=== PATIENT | female | born 1960 ===

== ENCOUNTER 2017-01-18 12:47 | Inpatient (IN) | payer BC ==
[2017-01-18 12:56] VITALS: BMI 37.9
[2017-01-18 13:32] LABS: ADD MANUAL DIFF? NO
[2017-01-18 13:36] LABS: BASO # 0.03 K/mm3 (0.0-2.0); BASO % 0.4 % (0.0-3.0); EOS # 0.1 (0.0-0.7); EOS % 1.8 % (1.5-5.0); GRAN # 4.21 (1.4-6.5); GRAN % 58.2 % (50.0-68.0); HEMATOCRIT 41.6 % (36.0-48.0); LYMPH # 2.4 (1.2-3.4); LYMPH % 33.4 % (22.0-35.0); MEAN CELL VOLUME 78.2 fL (80.0-105.0); MEAN CORPUSCULAR HEMOGLOBIN 24.6 pg (25.0-35.0); MEAN CORPUSCULAR HGB CONC 31.5 g/dl (31.0-37.0); MEAN PLATELET VOLUME 10.8 fl (7.0-11.0); MONO # 0.5 (0.1-0.6); MONO % 6.2 % (1.0-6.0); PLATELET COUNT 223 10^3/uL (120.0-450.0); RED CELL DISTRIBUTION WIDTH 17.8 % (11.5-14.5); WHITE BLOOD COUNT 7.2 10^3/ul (4.5-11.0)
--- NOTE | 2017-01-18 13:38 | RAD ---
HISTORY: chest pain COMPARISON: 04/20/2016 FINDINGS: LUNGS: The lungs are clear. PLEURA: No significant pleural effusion identified, no pneumothorax apparent. CARDIOVASCULAR: Normal. OSSEOUS STRUCTURES: No significant abnormalities. VISUALIZED UPPER ABDOMEN: Normal. OTHER FINDINGS: None. IMPRESSION: No active pulmonary disease.
[2017-01-18 13:47] LABS: ALKALINE PHOSPHATASE 79 U/L (38-133); ALT/SGPT 71 U/L (7-56); AST/SGOT 55 U/L (15-39); BILIRUBIN,TOTAL 0.6 mg/dL (0.2-1.3); BLOOD UREA NITROGEN 10 mg/dL (7-21); CALCIUM 9.8 mg/dL (8.4-10.5); CARBON DIOXIDE 27 mmol/L (21-33); CHLORIDE 102 mmol/L (98-107); GFR AFRICAN-AMERICAN > 60; GLUCOSE,RANDOM 83 mg/dL (70-110); MAGNESIUM 1.9 mg/dL (1.7-2.2); POTASSIUM 4.2 mmol/L (3.6-5.0); SODIUM 143 mmol/L (132-148); TOTAL PROTEIN 8.6 g/dL (5.8-8.3)
[2017-01-18 14:00] LABS: TROPONIN I < 0.01 ng/mL
--- NOTE | 2017-01-18 14:29 | ED PDOC ---
Arrival/HPI - General Chief Complaint: Chest Pain Time Seen by Provider: 01/18/17 12:54 Historian: Patient - History of Present Illness Narrative History of Present Illness (Text): 01/18/17 12:54 A 56 year old female whose past medical history includes hypertension and diabetes, who is sent into the emergency department by agricultural technician for further evaluation. The patient complains of intermittent chest pain that started 2 days ago. Pain radiated to the neck and down left arm. Patient is currently taking nitroglycerin for pain with resolution. Patient notes intermittent diaphoresis but denies any shortness of breath, fever, cough , abdominal pain or any other complaints at this time. PMD: Dr. Smith Cardiolgist: Dr. Guajardo/Dr. Andrade 01/18/17 14:56 Time/Duration: < week (started 2 days ago) Symptom Onset: Sudden Symptom Course: Intermittent Quality: Other ("pain") Activities at Onset: Rest Modifying Factors (Text): pain better with medication Context: Home Associated Symptoms (Text): diaphoresis Past Medical History - Provider Review Nursing Documentation Reviewed: Yes - Infectious Disease Hx of Infectious Diseases: None - Tetanus Immunization Tetanus Immunization: Unknown - Cardiac Hx Cardiac Disorders: Yes Hx Hypertension: Yes - Pulmonary Hx Asthma: Yes - Neurological Hx Neurological Disorder: No - HEENT Hx HEENT Disorder: No - Renal Hx Renal Disorder: No - Endocrine/Metabolic Hx Diabetes Mellitus Type 2: Yes (Subq and PO meds) - Hematological/Oncological Hx Blood Disorders: No - Integumentary Hx Dermatological Disorder: No - Musculoskeletal/Rheumatological Hx Musculoskeletal Disorders: Yes (Peripheral neuropathy to bl feet and chronic pain to blle) Hx Falls: No - Gastrointestinal Hx Gastroesophageal Reflux: Yes Hx Gastrointestinal Ulcer: Yes Hx Liver Failure: Yes (Fatty liver and Lymphs around liver and pancreas) - Genitourinary/Gynecological Hx Genitourinary Disorders: No - Psychiatric Hx Psychophysiologic Disorder: No Hx Substance Use: No - Surgical History Hx Cardiac Catheterization: Yes (X4) Hx Hysterectomy: Yes (partial) - Anesthesia Hx Anesthesia: Yes - Suicidal Assessment Feels Threatened In Home Enviroment: No Family/Social History - Physician Review Nursing Documentation Reviewed: Yes Family/Social History: Unknown Family HX Smoking Status: Never Smoked Hx Alcohol Use: No Hx Substance Use: No Hx Substance Use Treatment: No Allergies/Home Meds Allergies/Adverse Reactions: Allergies ibuprofen [From Motrin] Allergy (Verified 01/18/17 12:51) RASH mushroom Allergy (Verified 01/18/17 12:51) RASH Home Medications: Home Meds Medication Instructions Recorded Confirmed Esomeprazole Magnesium [Nexium] 40 mg PO QAM 07/02/12 01/18/17 Insulin Detemir [Levemir] 49 unit SC BID 07/02/12 01/18/17 Losartan Potassium [Cozaar] 100 mg PO QAM 07/02/12 01/18/17 metFORMIN [glucOPHAGE] 1,000 mg PO BID 07/02/12 01/18/17 Glimepiride [Amaryl] 4 mg PO BID 07/06/13 01/18/17 Montelukast [Singulair] 10 mg PO DAILY 07/13/13 01/18/17 Aspirin [Aspirin EC] 81 mg PO DAILY 02/09/15 01/18/17 Canagliflozin [Invokana] 100 mg PO QAM 02/09/15 01/18/17 Carvedilol [Coreg] 3.125 mg PO BID 02/09/15 01/18/17 Gabapentin [Neurontin] 300 mg PO TID 02/09/15 01/18/17 Nitroglycerin [Nitrostat] 0.4 mg SL PRN PRN 02/09/15 01/18/17 Dulaglutide [Trulicity] 0.75 mg SC MON 11/08/15 01/18/17 Alprazolam 0.5 mg PO HS 11/09/15 04/20/16 Escitalopram [Lexapro] 10 mg PO DAILY 11/09/15 01/18/17 Quetiapine Fumarate [Seroquel] 50 mg PO HS 11/09/15 01/18/17 Ranolazine [Ranexa] 500 mg PO BID 11/09/15 01/18/17 Zolpidem Tartrate [Zolpidem] 10 mg PO HS 11/09/15 01/18/17 Review of Systems - Physician Review All systems were reviewed & negative as marked: Yes - Review of Systems Constitutional: absent: Fevers Respiratory: absent: SOB, Cough Cardiovascular: Chest Pain Gastrointestinal: absent: Abdominal Pain Endocrine: Diaphoresis Physical Exam Vital Signs Temp Pulse Resp BP Pulse Ox 01/18/17 16:13 72 16 143/79 99 01/18/17 12:55 98.4 F 80 18 145/78 96 Temperature: Afebrile Blood Pressure: Normal Pulse: Regular Respiratory Rate: Normal Appearance: Positive for: Well-Appearing, Non-Toxic, Comfortable Pain Distress: None Mental Status: Positive for: Alert and Oriented X 3 - Systems Exam Head: Present: Atraumatic, Normocephalic Pupils: Present: PERRL Extroacular Muscles: Present: EOMI Conjunctiva: Present: Normal Mouth: Present: Moist Mucous Membranes Neck: Present: Normal Range of Motion Respiratory/Chest: Present: Clear to Auscultation, Good Air Exchange. No: Respiratory Distress, Accessory Muscle Use Cardiovascular: Present: Regular Rate and Rhythm, Normal S1, S2. No: Murmurs Abdomen: Present: Normal Bowel Sounds. No: Tenderness, Distention, Peritoneal Signs Back: Present: Normal Inspection Upper Extremity: Present: Normal Inspection. No: Cyanosis, Edema Lower Extremity: Present: Normal Inspection. No: Edema Neurological: Present: GCS=15, CN II-XII Intact, Speech Normal Skin: Present: Warm, Dry, Normal Color. No: Rashes Psychiatric: Present: Alert, Oriented x 3, Normal Insight, Normal Concentration Medical Decision Making ED Course and Treatment: 01/18/17 12:54 Impression: 56 year old female with chest pain. Differential Diagnosis included but are not limited to: stable angina vs. unstable angina vs. musculoskeletal Plan: -- EKG -- Chest X-ray -- Labs -- Urinalysis -- IV fluids -- Reassess and disposition Prior Visits: Notes and results from previous visits were reviewed. The patient last presented to the emergency department on 04/20/16 for evaluation of chest pain. Progress Notes: EKG: Ordered, reviewed, and independently interpreted the EKG. Rate : 78 BPM Rhythm : NSR Interpretation : No ST-segment elevations or depressions, no T-wave inversions, normal intervals. 01/18/17 13:40 Chest X-ray: Creator : JANEY HENDRICKSON MD COMPARISON: 04/20/2016 FINDINGS: LUNGS: The lungs are clear. PLEURA: No significant pleural effusion identified, no pneumothorax apparent. CARDIOVASCULAR: Normal. OSSEOUS STRUCTURES: No significant abnormalities. VISUALIZED UPPER ABDOMEN: Normal. OTHER FINDINGS: None. IMPRESSION: No active pulmonary disease. Case discussed with Dr. Guajardo, who states he is monitoring the patient for a 70 % lesion and he recommends further monitoring and possible stress test. 01/18/17 14:[address] Zurita, who is aware and agrees with the plan to place the patient in Telemetry for observation for chest pain. I have discussed the results and plan with the patient, who expresses understanding. Patient given the opportunity to ask question, all questions were answered and there is agreement with the plan to be admitted to the hospital. Case discussed with Dr. Mike, who is aware and agrees with the plan. - Lab Interpretations Lab Results: 01/18/17 13:20 01/18/17 13:20 Lab Results 01/18/17 13:20: WBC 7.2, RBC 5.32, Hgb 13.1, Hct 41.6, MCV 78.2 L, MCH 24.6 L, MCHC 31.5, RDW 17.8 H, Plt Count 223, MPV 10.8, Gran % 58.2, Lymph % (Auto) 33.4 , [place] % (Auto) 6.2 H, Eos % (Auto) 1.8, Baso % (Auto) 0.4, Gran # 4.21, Lymph # 2.4, [place] # 0.5, Eos # 0.1, Baso # 0.03, Sodium 143, Potassium 4.2, Chloride 102, Carbon Dioxide 27, Anion Gap 18, BUN 10, Creatinine 0.7, Est GFR ( Amer) > 60, Est GFR (Non-Af Amer) > 60, Random Glucose 83, Calcium 9.8, Magnesium 1.9, Total Bilirubin 0.6, AST 55 H, ALT 71 H, Alkaline Phosphatase 79 , Lactate Dehydrogenase 463, Total Creatine Kinase 58, Troponin I < 0.01, NT-Pro -B Natriuret Pep 38.1, Total Protein 8.6 H, Albumin 4.4, Globulin 4.2, Albumin/ Globulin Ratio 1.0 L I have reviewed the lab results: Yes - RAD Interpretation Radiology Orders: 01/18/17 12:59 CHEST PORTABLE [RAD] Stat - EKG Interpretation Interpreted by ED Physician: Yes Type: 12 lead EKG - Medication Orders Current Medication Orders: Clopidogrel Bisulfate (Plavix) 75 mg PO DAILY GABY Discontinued Medications Aspirin (Aspirin) 325 mg PO STAT STA Stop: 01/18/17 13:06 Last Admin: 01/18/17 13:22 Dose: 325 MG Bupivacaine HCl (Marcaine 0.5%) Confirm Administered Dose 30 ml .ROUTE .STK-MED ONE Stop: 01/18/17 16:31 Clopidogrel Bisulfate (Plavix) 300 mg PO STAT STA Stop: 01/18/17 14:56 Last Admin: 01/18/17 15:22 Dose: 300 MG Cyclobenzaprine HCl (Flexeril) 10 mg PO STAT STA Stop: 01/18/17 13:20 Last Admin: 01/18/17 13:29 Dose: 10 MG Iohexol (Omnipaque 240 (50 Ml)) Confirm Administered Dose 50 ml .ROUTE .STK-MED ONE Stop: 01/18/17 16:31 - Scribe Statement The provider has reviewed the documentation as recorded by the Scribe Parisa Burleson, training with Adam Mckeon Provider Scribe Attestation: All medical record entries made by the Scribe were at my direction and personally dictated by me. I have reviewed the chart and agree that the record accurately reflects my personal performance of the history, physical exam, medical decision making, and the department course for this patient. I have also personally directed, reviewed, and agree with the discharge instructions and disposition. Disposition/Present on Arrival - Present on Arrival Any Indicators Present on Arrival: No History of DVT/PE: No History of Uncontrolled Diabetes: Yes Urinary Catheter: No History of Decub. Ulcer: No History Surgical Site Infection Following: None - Disposition Have Diagnosis and Disposition been Completed?: Yes Diagnosis: Chest pain Disposition: HOSPITALIZED Disposition Time: 14:29 Patient Plan: Observation, Telemetry Patient Problems: Current Active Problems Problem Status Diagnosed Chest pain Acute Facial numbness Acute Condition: FAIR
--- NOTE | 2017-01-18 15:26 | CON ---
DATE: 01/18/2017 HISTORY OF PRESENT ILLNESS: The patient is a 56-year-old woman who presented to the Emergency Room f emil Forrest' office with symptoms consistent with unstable angina. The patient suffers from multiple cardiac risk factors, including hypertension, questionable diabetes mellitus. The patient had a cardiac catheterization 2 years ago which she states had a 70% stenoses in 1 of the vessels. No stent was placed. A stress test was done 2 years ago which was abnormal. SOCIAL HISTORY: Denies smoking. REVIEW OF SYSTEMS: Reviewed. No history of bleeding. No peptic ulcer disease is noted. She does a dmit to ALLERGY TO MOTRIN. No issues with aspirin and she has taken it daily. PHYSICAL EXAMINATION: VITAL SIGNS: Stable. NECK: Negative JVD. LUNGS: Without rales. HEART: Reveals S1, S2. EXTREMITIES: Without edema. EKG is unremarkable. LABORATORIES: Reveal troponins that are negative x 1. IMPRESSION: 1. Unstable angina. 2. Documented coronary artery disease. 3. Hypertension. 4. Obesity. 5. Questionable diabetes mellitus. Given these findings, we will rule out a myocardial infarction with serial troponins. We will schedule the patient for cardiac catheterization with possible PTCA on Saturday. Alcon Mike MD cc: [id number] TT: 01/18/2017 15:26:07 Confirmation # [id number] Dictation # [id number] tn
[2017-01-18] MEDS ORDERED: Bupivacaine 0.5% Inj(30mL) ONE (16:30)
[2017-01-18] MEDS ORDERED: Iohexol 240 (50 ml) ONE (16:30)
--- NOTE | 2017-01-18 18:33 | CARD ---
APPROVED REPORT EKG Measurement Heart [id number] <Conclusion> Normal sinus rhythm Normal ECG
[2017-01-18] MEDS: Insulin Detemir 100 units/ml Vial (Levemir) SC SCH (20:46)
--- NOTE | 2017-01-18 23:35 | HP ---
HISTORY OF PRESENT ILLNESS: The patient is a 56-year-old who came to Emergency Room after she saw Dr Cortney Guajardo who referred her to Emergency Room because of chest pressure. She was seen by Dr. Bennett Smith's office. She was having intermittent chest pain that started 2-3 days ago but got worse so she came to see her emergency veterinarian. The patient states the pain is radiating towards the neck and a lso going towards the neck and towards the left arm and the fingers. She was given nitroglycerin wit h good effect, and her pain now almost resolved. She complained of feeling sweaty. Does complain of dizziness. No history of fever or chills. At times gets short of breath. PAST MEDICAL HISTORY: Significant for: 1. Morbid obesity. 2. Hypertension. 3. Hyperlipidemia. 4. Rij-axuylhn-gubtsielt diabetes. 5. She had cardiac catheterization done ____ and was found to have 70% stenosis. She also had a str ess test in 12/2015 and was found to have normal Myoview study, partial reversible anterior and apica l defect consistent with breast attenuation. ALLERGIES: SHE IS ALLERGIC TO IBUPROFEN AND MUSHROOM. MEDICATIONS AT HOME: She is on Nexium 40 mg daily. She is on aspirin 81 daily, Lexapro 10 mg daily, Trulicity 0.5 subcutaneous every Saturday, Coreg 3.125 twice a day, Invokana 100 mg daily, Levemir 49 units twice a day, Amaryl 4 mg twice a day, Neurontin 300 three times a day, Nexium 40 mg daily, Sero quel 50 mg at bedtime, Singulair 10 mg daily, Cozaar 100 mg daily, metformin 1000 twice a day, zolpid em 10 mg at bedtime, Ranexa 500 twice a day and Xanax. SOCIAL HISTORY: Denies smoking, drinking or alcohol use. ASSESSMENT: 1. Intermittent chest pain associated with diaphoresis and radiation to left arm. 2. Insulin-dependent diabetes. 3. Obesity. 4. Hypertension. 5. Hyperlipidemia. 6. Peptic ulcer disease. 7. History of depression. 8. Unstable angina. PLAN: The patient is going to be placed in observation. Will follow up troponin, follow up her card iac enzymes. Will start her on usual medication. Start her on losartan. She is on Ranexa 500 twice a day. She is on Coreg 3.125 twice a day. Will monitor her blood sugar. She has been started on P lavix. Monitor her blood sugar. Will evaluate this patient in the a.m. There is a plan for cardiac catheterization. I will hold off on metformin and cover her with high dose of Humalog. Myrna Zurita MD cc: [phone] TT: 01/18/2017 19:45:49 mn
[2017-01-19 06:49] LABS: ADD MANUAL DIFF? NO
[2017-01-19 07:07] LABS: BASO # 0.02 K/mm3 (0.0-2.0); BASO % 0.3 % (0.0-3.0); EOS # 0.2 (0.0-0.7); EOS % 2.2 % (1.5-5.0); GRAN # 4.09 (1.4-6.5); GRAN % 59.9 % (50.0-68.0); LYMPH # 2.1 (1.2-3.4); LYMPH % 31.2 % (22.0-35.0); MEAN CELL VOLUME 78.6 fL (80.0-105.0); MEAN CORPUSCULAR HGB CONC 30.5 g/dl (31.0-37.0); MEAN PLATELET VOLUME 10.7 fl (7.0-11.0); MONO # 0.4 (0.1-0.6); MONO % 6.4 % (1.0-6.0); PLATELET COUNT 214 10^3/uL (120.0-450.0); RED CELL DISTRIBUTION WIDTH 17.9 % (11.5-14.5); WHITE BLOOD COUNT 6.8 10^3/ul (4.5-11.0)
[2017-01-19 07:30] LABS: ALKALINE PHOSPHATASE 68 U/L (38-133); ALT/SGPT 51 U/L (7-56); AST/SGOT 48 U/L (15-39); BILIRUBIN,TOTAL 0.5 mg/dL (0.2-1.3); BLOOD UREA NITROGEN 14 mg/dL (7-21); CALCIUM 8.9 mg/dL (8.4-10.5); CARBON DIOXIDE 29 mmol/L (21-33); CHLORIDE 101 mmol/L (98-107); CHOLESTEROL 174 mg/dL (130-200); GFR AFRICAN-AMERICAN > 60; GLUCOSE,RANDOM 150 mg/dL (70-110); PHOSPHOROUS 4.1 mg/dL (2.5-4.5); POTASSIUM 3.9 mmol/L (3.6-5.0); SODIUM 141 mmol/L (132-148); TOTAL PROTEIN 7.5 g/dL (5.8-8.3)
[2017-01-19] MEDS: Insulin Lispro (humaLOG) MEDIUM Coverage SC SCH ×4 (07:30→22:58)
[2017-01-19 07:36] LABS: FREE T4 1.02 ng/dL (0.78-2.19)
[2017-01-19] MEDS: Pantoprazole 40 mg EC Tab PO SCH (07:46)
[2017-01-19 07:50] LABS: THYROID STIMULATING HORMONE 0.71 mIU/mL (0.46-4.68)
--- NOTE | 2017-01-19 08:14 | PN ---
DATE: 01/19/2017 SUBJECTIVE: The patient's symptoms are improved, but she still has intermittent chest discomfort hailee cribed as pressure. PHYSICAL EXAMINATION: VITAL SIGNS: Blood pressure 112/60, the heart rate is in the 70s. NECK: Negative JVD. LUNGS: Without rales. HEART: Reveals S1, S2. EXTREMITIES: Without edema. LABORATORIES: Include troponins that are negative x 2. The glucose is 150. Hemoglobin is 12.2. IMPRESSION: 1. Unstable angina. 2. Coronary artery disease. 3. Diabetes mellitus. 4. Hypertension. 5. Obesity. Given these findings, we will add Lovenox to her regimen. We will increase her carvedilol to 6.25 da lexie. The patient is scheduled for cardiac catheterization on Saturday. Alcon Mike MD cc: [id number] TT: 01/19/2017 08:14:06 Confirmation # [id number] Dictation # [id number] tn
[2017-01-19] MEDS: Insulin Detemir 100 units/ml Vial (Levemir) SC SCH ×2 (10:12→17:11)
[2017-01-19] MEDS: Non Formulary Medication (Ranolazine [Ranexa] 500 MG) PO SCH ×2 (10:16→17:16)
[2017-01-19] MEDS: Enoxaparin 80 mg Syringe SC SCH ×2 (10:19→20:30)
--- NOTE | 2017-01-19 12:08 | PN ---
DATE: 01/19/2017 SUBJECTIVE: The patient is a 56-year-old who came in with chest pain radiating from neck to shoulder to the left arm to the point her left arm was very heavy and numb and she was unable to lift it up. The patient has multiple risk factors, including morbid obesity, hypertension, non-insulin dependent diabetes, hyperlipidemia, so she is being observed and has been on Plavix, aspirin and plan is to borrero ve cardiac cath done on Saturday. PHYSICAL EXAMINATION: GENERAL: She is awake and alert, communicative. VITAL SIGNS: She is afebrile, pulse 72, respirations 18, blood pressure 112/59. LUNGS: Bilateral good airflow. No rhonchi or crackle. HEART: S1, S2 audible. No murmur. ABDOMEN: Soft, obese, nontender, no rebound, no guarding. NEUROLOGIC: The patient is awake and alert, communicative, ambulatory. LABORATORY EXAMINATION: WBC 6.8, hemoglobin 12, hematocrit 40, platelet of 214. Chemistry: Sodium 141, potassium 3.9, chloride 101, CO2 29, BUN 14, creatinine 0.8, blood sugar of 148. ASSESSMENT: 1. Chest pain, probably unstable angina. 2. Morbid obesity. 3. Hypertension. 4. Hyperlipidemia. 5. Peptic ulcer disease. 6. Cholelithiasis. PLAN: Currently, the patient is on Plavix. She is on beta christian. She is on Ranexa. She is getti ng Coreg, losartan 100 daily. She is on Lovenox 70 mg q. 12. We will continue that. She is also re ceiving Plavix and Protonix. Discussed with patient. She agreed with the plan and Dr. Mike will pro ceed for cardiac cath on Saturday. Myrna Zurita MD cc: [phone] TT: 01/19/2017 12:07:52 Confirmation # [id number] Dictation # [id number] tn
[2017-01-20] MEDS: Pantoprazole 40 mg EC Tab PO SCH (06:47)
[2017-01-20] MEDS: Insulin Detemir 100 units/ml Vial (Levemir) SC SCH ×2 (10:29→17:54)
[2017-01-20] MEDS: Insulin Lispro (humaLOG) MEDIUM Coverage SC SCH ×4 (10:32→23:12)
[2017-01-20] MEDS: Non Formulary Medication (Ranolazine [Ranexa] 500 MG) PO SCH ×2 (10:37→20:09)
[2017-01-20] MEDS: Enoxaparin 80 mg Syringe SC SCH (10:39)
--- NOTE | 2017-01-20 14:46 | PN ---
DATE: 01/20/2017 The patient is a 56-year-old, seen and examined, sitting in chair, comfortable. She states her chest soreness is much better than before. No nausea, vomiting, no diarrhea, no fever, no chills, no coug h, no congestion. PHYSICAL EXAMINATION: VITAL SIGNS: She is afebrile, pulse 77, respirations 20, blood pressure 145/88. LUNGS: Bilateral fair airflow, no rhonchi or crackle. HEART: S1, S2 audible. No murmur. ABDOMEN: Soft, obese, nontender, no rebound, no guarding. NEUROLOGIC: She is awake and alert, communicative, ambulatory. Today's blood sugar this morning was 258 and in the afternoon is 138. ASSESSMENT: 1. Chest pain, seems to be atypical. However, she has multiple risk factors and she has history of 70% occlusion of the coronary artery, so she is scheduled to have cardiac cath done in the morning. She is currently on Lovenox, beta christian. Her blood sugar is being monitored. 2. Insulin-dependent diabetes. 3. Hypertension. 4. Hyperlipidemia. 5. Morbid obesity. PLAN: The patient's medications reviewed and found to be appropriate. The patient is scheduled for cardiac cath in a.m. Myrna Zurita MD cc: [phone] TT: 01/20/2017 14:45:51 Confirmation # [id number] Dictation # [id number] en
[2017-01-21] MEDS: Pantoprazole 40 mg EC Tab PO SCH (05:38)
[2017-01-21] MEDS ORDERED: Iohexol 350mgl/ml 50 ML ONE (06:46)
[2017-01-21] MEDS ORDERED: Lidocaine 2% Inj (20ml) ONE (06:46)
[2017-01-21] MEDS: Midazolam 2 MG/2 ML VIAL ONE ×4 (08:07→12:23)
[2017-01-21] MEDS ORDERED: Iohexol 350 MG/100 ML VIAL ONE (08:21)
--- NOTE | 2017-01-21 08:43 | PN ---
DATE: 01/20/2017 CARDIOLOGY FOLLOWUP The patient is feeling well, resting okay in bed. No chest pain this morning. PHYSICAL EXAMINATION: VITAL SIGNS: Blood pressure is 118/62. The heart rate is in the 70s. NECK: Negative JVD. LUNGS: Without rales. HEART: Reveals S1, S2. EXTREMITIES: Without edema. LABORATORIES: Not done today. IMPRESSION: 1. Recurrent angina. 2. High probability for coronary artery disease. 3. Diabetes mellitus. 4. Hypertension. PLAN: Given these findings, we will discontinue the Lovenox today. The patient is scheduled for car diac catheterization in the morning. Alcon Mike MD cc: [id number] TT: 01/20/2017 08:50:59 Confirmation # [id number] Dictation # [id number] jn
[2017-01-21] MEDS ORDERED: Sodium Chloride 0.9% 1,000 ML IV SCH (09:00)
--- NOTE | 2017-01-21 10:14 | CARDCATH ---
PROCEDURE DATE: 01/21/2017 HISTORY: The patient is a 56-year-old woman who presents with recurrence of angina including progres sive shortness of breath and angina at rest. Her cardiac risk factors are multiple including diabetes mellitus. A myocardial infarction was ruled out. Because of this, cardiac catheterization was recommended. PROCEDURE: Left heart catheterization with coronary angiography and left ventriculogram. The right femoral artery was cannulated with a 6-Azeri sheath. There were no complications. Findings on catheterization revealed a left ventricle that contracted normally. Estimated ejection f raction is 55-60%. Her coronary anatomy revealed a right dominant circulation. The RCA revealed no critical lesions. The left main artery was unremarkable. The LAD was a small vessel and revealed an eccentric 50% stenosis in the mid portion. The rest of he r diagonal vessels are unremarkable. The circumflex artery and obtuse marginal branches were within normal limits. Angio-Seal was used to close the femoral artery site. The patient tolerated the procedure well. SUMMARY: The procedure revealed an eccentric nonobstructive 50% stenosis in the mid left anterior de scending (LAD). LV function is normal. Given these findings, the patient's treatment will be continued medical therapy including a cardiac r isk reduction program. I have discussed this with the patient in detail. The patient can be dischar ge today. Alcon Mike MD cc: [id number] TT: 01/21/2017 10:13:54 georgette
[2017-01-21] MEDS: Insulin Lispro (humaLOG) MEDIUM Coverage SC SCH ×3 (12:18→22:32)
[2017-01-21] MEDS: Insulin Detemir 100 units/ml Vial (Levemir) SC SCH ×2 (12:19→18:09)
[2017-01-21] MEDS: Non Formulary Medication (Ranolazine [Ranexa] 500 MG) PO SCH ×2 (12:20→18:16)
--- NOTE | 2017-01-21 14:22 | PN ---
DATE: 01/21/2017 The patient is a 56-year-old, seen and examined, lying in bed, seems to be comfortable, not in any di stress. No chest pain, no shortness of breath. PHYSICAL EXAMINATION: VITAL SIGNS: She is afebrile, pulse 76, respirations 20, blood pressure 122/76. LUNGS: Bilateral fair airflow, no rhonchi or crackle. HEART: S1, S2 audible. ABDOMEN: Soft, obese, nontender, no rebound, no guarding. NEUROLOGIC: The patient is awake and alert, communicative, just had cardiac cath done. LABORATORY EXAMINATION: There is no new lab available today. Blood sugar is 181. ASSESSMENT: 1. Chest pain, noncardiac. 2. Hypertension. 3. Hyperlipidemia. 4. Insulin-dependent diabetes. 5. Peptic ulcer disease. PLAN: Currently, patient is on Ranexa. She is getting Coreg, losartan, aspirin. She is on Levemir. We will continue all that. Today's cardiac cath shows nonocclusive coronaries. ASSESSMENT: 1. Chest pain, noncardiac. 2. Hypertension. 3. Insulin-dependent diabetes. PLAN: The patient will be monitored and watched today and if she remains stable, she will be dischar ged home in a.m. Myrna Zurita MD cc: [phone] TT: 01/21/2017 12:32:44 Confirmation # [id number] Dictation # [id number] en 01/21/2017 13:20:57
[2017-01-21 19:42] VITALS: RESP 20
[2017-01-21 20:08] LABS: HEMATOCRIT 39.2 % (36.0-48.0); MEAN CELL VOLUME 77.8 fL (80.0-105.0); MEAN CORPUSCULAR HEMOGLOBIN 24.8 pg (25.0-35.0); MEAN CORPUSCULAR HGB CONC 31.9 g/dl (31.0-37.0); MEAN PLATELET VOLUME 10.4 fl (7.0-11.0); RED CELL DISTRIBUTION WIDTH 17.6 % (11.5-14.5); WHITE BLOOD COUNT 7.5 10^3/ul (4.5-11.0)
[2017-01-21] MEDS ORDERED: Oxycodone/Acetaminophen 5/325 mg Tab PO STA (21:29)
[2017-01-22] MEDS: Pantoprazole 40 mg EC Tab PO SCH (06:07)
[2017-01-22 06:37] VITALS: O2SAT 98
--- NOTE | 2017-01-22 06:45 | CP.PCM.PN ---
Subjective - Date & Time of Evaluation Date of Evaluation: 01/21/17 Time of Evaluation: 19:35 - Subjective Subjective: Patient's groin area was examined upon request of the nurse as noticed some discoloration, pain and swelling, patient had cardiac cath from the right groin in the morning. Upon evaluation and comparing with other groin, patient had significant folds in the both groin due to obesity, right groin showed echycmosis, no active bleeding, upon palpation not induration, mild tenderness around the cath site. Patient's hemoglobin was check and rechecked this am, patient evaluated by the nurse as well overnight with no change in the exam. Primary team will be notified by nursing. Objective - Vital Signs/Intake and Output Vital Signs (last 24 hours): Temp Pulse Resp BP Pulse Ox 97.3 F L 81 20 118/70 98 01/22/17 06:00 01/22/17 06:00 01/22/17 06:00 01/22/17 06:00 01/22/17 06:00 Intake and Output: 01/21/17 01/22/17 18:59 06:59 Intake Total 360 Output Total 450 Balance -90 - Medications Medications: Current Medications Alprazolam (Xanax) 0.5 mg PO DAILY [facility] Last Admin: 01/20/17 12:53 Dose: 0.5 mg Aspirin (Ecotrin) 81 mg PO DAILY [facility] Last Admin: 01/21/17 15:03 Dose: Not Given Carvedilol (Coreg) 6.25 mg PO BID [facility] Last Admin: 01/21/17 18:06 Dose: 6.25 mg Escitalopram Oxalate (Lexapro) 10 mg PO DAILY [facility] Last Admin: 01/21/17 11:13 Dose: 10 mg Gabapentin (Neurontin) 300 mg PO TID [facility] PRN Reason: Protocol Last Admin: 01/21/17 18:05 Dose: 300 mg Glimepiride (Amaryl) 4 mg PO BID [facility] Last Admin: 01/21/17 18:05 Dose: 4 mg Insulin Detemir (Levemir) 49 unit SC BID [facility] Last Admin: 01/21/17 18:09 Dose: 49 unit Insulin Human Lispro (Humalog Med) 0 units SC ACHS [facility] PRN Reason: Protocol Last Admin: 01/21/17 22:32 Dose: Not Given Losartan Potassium (Cozaar) 100 mg PO QAM [facility] Last Admin: 01/21/17 11:14 Dose: 100 mg Montelukast Sodium (Singulair) 10 mg PO DAILY [facility] Last Admin: 01/21/17 15:09 Dose: 10 mg Non-Formulary Medication (Ranolazine [Ranexa]) 500 mg PO BID [facility] Last Admin: 01/21/17 18:16 Dose: Not Given Pantoprazole Sodium (Protonix Ec Tab) 40 mg PO 0630 [facility] Last Admin: 01/22/17 06:07 Dose: 40 mg Zolpidem Tartrate (Ambien) 5 mg PO HS [facility] Last Admin: 01/21/17 23:33 Dose: 5 mg - Labs Labs: 01/21/17 20:03
[2017-01-22 07:15] LABS: HEMATOCRIT 40.4 % (36.0-48.0); MEAN CELL VOLUME 78.3 fL (80.0-105.0); MEAN CORPUSCULAR HEMOGLOBIN 24.2 pg (25.0-35.0); MEAN CORPUSCULAR HGB CONC 30.9 g/dl (31.0-37.0); MEAN PLATELET VOLUME 10.2 fl (7.0-11.0); RED CELL DISTRIBUTION WIDTH 17.7 % (11.5-14.5); WHITE BLOOD COUNT 6.6 10^3/ul (4.5-11.0)
[2017-01-22] MEDS: Insulin Lispro (humaLOG) MEDIUM Coverage SC SCH (08:35)
[2017-01-22] MEDS: Insulin Detemir 100 units/ml Vial (Levemir) SC SCH (09:55)
[2017-01-22] MEDS: Non Formulary Medication (Ranolazine [Ranexa] 500 MG) PO SCH ×2 (09:59→10:03)
--- NOTE | 2017-01-22 11:43 | PN ---
DATE: 01/22/2017 The patient is comfortable. Her transient discomfort in the right groin, as well as oozing from the groin was treated appropriately with pressure. Currently, the right groin site is stable. Blood pressure is 124/69, the heart rate is in the 70s. NECK: Negative JVD. LUNGS: Without rales. HEART: Reveals S1, S2. EXTREMITIES: Without edema. LABORATORIES: Unremarkable. IMPRESSION: 1. Status post catheterization for recurrent chest pain, which revealed nonobstructive coronary arter y disease. 2. Diabetes mellitus. 3. Transient bleeding from the right groin site after the procedure, which is now stable. Given these findings, the patient can be discharged today. Followup and instructions have been given to the patient in detail. Alcon Mike MD cc: [id number] TT: 01/22/2017 11:42:45 Confirmation # [id number] Dictation # [id number] georgette
[2017-01-22 12:32] VITALS: BP 123/73; PULSE 65; TEMP 98.2
--- NOTE | 2017-01-23 08:17 | DS ---
The patient is a 56-year-old, seen and examined lying in bed. Comfortable. No chest pain, no shortn ess of breath. Eating and tolerating. Ambulating. Very anxious to go home. PHYSICAL EXAMINATION: VITAL SIGNS: She is afebrile, pulse 65, respirations 20, blood pressure 123/73. LUNGS: Bilateral fair airflow, no rhonchi or crackle. HEART: S1, S2 audible. No murmur. ABDOMEN: Soft, obese, nontender. No rebound, no guarding. NEUROLOGIC: The patient is awake and alert, communicative. LABORATORY EXAM: WBC 6.6, hemoglobin 12.5, hematocrit 40, platelet 189. Chemistry: Blood sugar is 201. ASSESSMENT: 1. Chest pain. No evidence of acute myocardial infarction. Her coronaries are clear. 2. Status post cardiac catheterization, unremarkable. No ischemia and no blockage requiring angiopl asty. 3. Insulin-dependent diabetes. 4. Morbid obesity. 5. Hypertension. 6. Hyperlipidemia. PLAN: The patient is being discharged home. She is going to resume her medications including aspiri n 81 daily, Lexapro 10 mg daily, Trulicity, Coreg, Levemir, Amaryl, Neurontin 300 three times a day, Nexium 40 daily, Seroquel 50 mg at bedtime, Singulair 10 mg daily, losartan 100 mg in the morning, me tformin 1000 twice a day, zolpidem 10 mg at bedtime. She will follow with Dr. Smith as outpatient and she will take her cardiac cath report to her spinning operator, Dr. Guajardo. Myrna Zurita MD cc: [id number] TT: 01/23/2017 08:16:54 md
== END 2017-01-22 14:03 | disposition home or self-care (01) | DRG 287 ==
LOC: ED 12:47 → ERH 14:29 → 2RSO 16:24 → OBSVTOIN 01-19 14:22 → 2RNO 01-19 21:53 → 2RSO 01-21 10:25
PROVIDERS: ADMIT Internal Medicine; ATTEND Internal Medicine
PROC: 4A023N7 Measurement of Cardiac Sampling and Pressure, Left Heart, Percutaneous Approach (ICD-10-PCS; principal; 2017-01-21)
PROC: B2151ZZ Fluoroscopy of Left Heart using Low Osmolar Contrast (ICD-10-PCS; 2017-01-21)
PROC: B2111ZZ Fluoroscopy of Multiple Coronary Arteries using Low Osmolar Contrast (ICD-10-PCS; 2017-01-21)
DX: I25.10 Atherosclerotic heart disease of native coronary artery without angina pectoris (principal); E66.01 Morbid (severe) obesity due to excess calories; K27.9 Peptic ulcer, site unspecified, unspecified as acute or chronic, without hemorrhage or perforation; R07.89 Other chest pain; E11.9 Type 2 diabetes mellitus without complications; I10 Essential (primary) hypertension; E78.5 Hyperlipidemia, unspecified; F32.9 Major depressive disorder, single episode, unspecified; K80.20 Calculus of gallbladder without cholecystitis without obstruction; Z79.4 Long term (current) use of insulin; Z79.84 Long term (current) use of oral hypoglycemic drugs; Z88.6 Allergy status to analgesic agent; Z79.82 Long term (current) use of aspirin

== ENCOUNTER 2017-11-18 14:02 | Observation (INO) | payer BC ==
[2017-11-18 14:11] VITALS: BMI 37.3
--- NOTE | 2017-11-18 14:55 | ED PDOC ---
Arrival/HPI - General Chief Complaint: Chest Pain Time Seen by Provider: 11/18/17 14:22 Historian: Patient - History of Present Illness Narrative History of Present Illness (Text): 11/18/17 14:25 Iwona Frederick is a 56 year old female who presents to the emergency department complaining of chest pain, shortness of breath, dizziness, near syncope. and generalized weakness prior to arrival. Patient states that she took her aspirin prior to arrival. Patient had a 50% LAD lesion on last December and was catheterized on 01/21 with medical therapy only. Patient has no other complaints at this time. Patient is not a smoker and does not drink. Time/Duration: Prior to Arrival Symptom Onset: Gradual Severity Level: Mild Context: Home Associated Symptoms (Text): 11/18/17 15:13 This afternoon while cooking the patient developed chest pain shortness of breath dizziness and lightheadedness and near syncope and generalized weakness. Cardiac catheterization in December 2016 showed right dominant circulation with a 50% LAD lesion. Past Medical History - Provider Review Nursing Documentation Reviewed: Yes - Infectious Disease Hx of Infectious Diseases: None - Tetanus Immunization Tetanus Immunization: Unknown - Reproductive Menopause: Yes - Cardiac Hx Cardiac Disorders: Yes Hx Cardiac Arrhythmia: No Hx Circulatory Problems: No Hx Congestive Heart Failure: No Hx GA: Yes Hx Heart Murmur: No Hx Heart Transplant: No Hx Internal Defibrillator: No Hx Mitral Valve Prolapse: No Hx Pacemaker: No Hx Peripheral Edema: No Hx Peripheral Vascular Disease: No Other/Comment: GA - Pulmonary Hx Respiratory Disorders: No Hx Asthma: Yes Hx Bronchitis: No Hx Chronic Obstructive Pulmonary Disease (COPD): No Hx Emphysema: No Hx Pneumonia: No Hx Respiratory Aspiration: No Hx Respiratory Tract Infection: No Hx Sleep Apnea: No Hx Tuberculosis: No - Neurological Hx Neurological Disorder: No Hx Alzheimer's Disease: No HX Cerebrovascular Accident: Yes (TIA's) Hx Dementia: No Hx Dizziness: No Hx Meningitis: No Hx Paralysis: No Hx Parkinson's Disease: No Hx Seizures: No - HEENT Hx Blind: No Hx Cataracts: No Hx Deafness: No Hx Difficulty Chewing: No Hx Epistaxis: No Hx Glaucoma: No Hx Macular Degeneration: No - Renal Hx Kidney Stones: No Hx Neurogenic Bladder: No Hx Pyelonephritis: No Hx Renal Failure: No - Endocrine/Metabolic Hx Endocrine Disorders: No Hx Adrenal Cancer: No Hx Diabetes Insipidus: No Hx Diabetes Mellitus Type 1: No Hx Diabetes Mellitus Type 2: Yes (Subq and PO meds) Hx Hyperthyroidism: No Hx Hypothyroidism: Yes Hx Systemic Lupus Erythematosus: No - Hematological/Oncological Hx AIDS: No Hx Blood Transfusions: No Hx Blood Transfusion Reaction: No Hx Cancer: Yes (Cervical) Hx Cirrhosis: No Hx Hemophilia: No Hx Hepatitis A: No Hx Hepatitis B: No Hx Hepatitis C: No Hx Metastasis: No Hx Shingles: No Hx Sickle Cell Disease: No Hx Unexplained Bleeding: No - Integumentary Hx Basal Cell Carcinoma: No Hx Eczema: No Hx Melanoma: No Hx Psoriasis: No Hx Squamous Cell Carcinoma: No - Musculoskeletal/Rheumatological Hx Musculoskeletal Disorders: Yes (Peripheral neuropathy to bl feet and chronic pain to blle) Hx Degenerative Joint Disease: No Hx Falls: No Hx Fractures: No Hx Gout: No Hx Herniated Disk: No Hx Myasthenia Gravis: No Hx Osteoarthritis: No Hx Osteomyelitis: No Hx Osteoporosis: No Hx Rhabdomyolysis: No Hx Spinal Stenosis: No Hx Unsteady Gait: No - Gastrointestinal Hx Gastrointestinal Disorders: No Hx Colostomy: No Hx Crohn's Disease: No Hx Diverticulitis: No Hx Gall Bladder Disease: No Hx Gastroesophageal Reflux: Yes Hx Ileostomy: No Hx Liver Failure: Yes (Fatty liver and Lymphs around liver and pancreas) Hx Pancreatitis: No HX Swallowing Problems: No - Genitourinary/Gynecological Hx Genitourinary Disorders: No Hx Cervical Cancer: Yes (FROZEN COLONIZATION?) Hx Hematuria: No Hx Incontinence: No Hx Prostate Problems: No Hx Sexually Transmitted Diseases: No Hx Urinary Tract Infection: No - Psychiatric Hx Anxiety: No Hx Bipolar Disorder: No Hx Depression: No Hx Emotional Abuse: No Hx Hallucinations: No Hx Panic Disorder: No Hx Post Traumatic Stress Disorder: No Hx Psychosis: No Hx Physical Abuse: No Hx Schizophrenia: No Hx Sexual Abuse: No Hx Substance Use: No - Surgical History Hx Amputation: No Hx Appendectomy: No Hx Cardiac Catheterization: Yes Hx Section: Yes Hx Cholecystectomy: No Hx Coronary Stent: No Hx Gastric Bypass Surgery: No Hx Hysterectomy: Yes (partial) Hx Joint Replacement: No Hx Kidney Transplant: No Hx Liver Transplant: No Hx Mastectomy: No Hx Musculoskeletal Surgery: No Hx Open Heart Surgery: No Hx Orthopedic Surgery: No Hx Splenectomy: No Hx Valve Replacement: No - Anesthesia Hx Anesthesia: Yes Hx Anesthesia Reactions: No Hx Malignant Hyperthermia: No - Suicidal Assessment Feels Threatened In Home Enviroment: No Family/Social History - Physician Review Nursing Documentation Reviewed: Yes Family/Social History: No Known Family HX Smoking Status: Never Smoked Hx Alcohol Use: No Hx Substance Use: No Hx Substance Use Treatment: No Allergies/Home Meds Allergies/Adverse Reactions: Allergies ibuprofen [From Motrin] Allergy (Verified 11/18/17 14:37) RASH mushroom Allergy (Verified 11/18/17 14:37) RASH Home Medications: Home Meds Medication Instructions Recorded Confirmed Montelukast [Singulair] 10 mg PO DAILY 07/13/13 11/18/17 Aspirin [Aspirin EC] 81 mg PO DAILY 02/09/15 11/18/17 Carvedilol [Coreg] 6.25 mg PO BID 02/09/15 11/18/17 Gabapentin [Neurontin] 600 mg PO TID 02/09/15 11/18/17 Nitroglycerin [Nitrostat] 0.4 mg SL PRN PRN 02/09/15 11/18/17 Albuterol HFA [Ventolin HFA 90 2 puff IH Q6 PRN 02/19/17 11/18/17 mcg/actuation (8 g)] Alprazolam 0.5 mg PO HS PRN 02/19/17 11/18/17 Diltiazem HCl [Cardizem Cd] 120 mg PO DAILY 02/19/17 11/18/17 Dulaglutide [Trulicity] 1.5 mg SC QWK 02/19/17 11/18/17 Escitalopram [Lexapro] 10 mg PO DAILY 02/19/17 11/18/17 Esomeprazole Magnesium [Nexium] 40 mg PO DAILY 02/19/17 11/18/17 Insulin Degludec [Tresiba 60 unit SC DAILY 02/19/17 11/18/17 Flextouch U-100] Levomefolate/B6/B12/Algal Oil 1 tab PO DAILY 02/19/17 11/18/17 [Metanx Capsule] Losartan [Cozaar] 100 mg PO DAILY 02/19/17 11/18/17 Pregabalin [Lyrica] 100 mg PO TID 02/19/17 11/18/17 QUEtiapine [SEROquel XR] 50 mg PO HS 02/19/17 11/18/17 Ranolazine [Ranexa] 500 mg PO BID 02/19/17 11/18/17 Zolpidem [Ambien] 10 mg PO HS 02/19/17 11/18/17 Canagliflozin/Metformin HCl 1 tab PO BID 11/18/17 11/18/17 [Invokamet 50 mg-1000 mg] Clopidogrel [Plavix] 75 mg PO DAILY 11/18/17 11/18/17 Ezetimibe [Zetia] 10 mg PO DAILY 11/18/17 11/18/17 Glimepiride [Amaryl] 4 mg PO BID 11/18/17 11/18/17 Review of Systems - Physician Review All systems were reviewed & negative as marked: Yes - Review of Systems Constitutional: absent: Fevers, Night Sweats Eyes: absent: Vision Changes ENT: absent: Hearing Changes Respiratory: SOB. absent: Cough, Sputum, Wheezing Cardiovascular: Chest Pain, Syncope (near syncope). absent: Palpitations Gastrointestinal: absent: Abdominal Pain, Nausea, Vomiting Genitourinary Female: absent: Dysuria, Frequency Musculoskeletal: absent: Arthralgias Skin: absent: Rash, Pruritis Neurological: Dizziness. absent: Headache Endocrine: absent: Diaphoresis Hemo/Lymphatic: absent: Adenopathy Psychiatric: absent: Anxiety, Depression Physical Exam Vital Signs Reviewed: Yes Vital Signs Temp Pulse Pulse Resp BP Pulse Ox 11/18/17 16:05 75 18 137/66 96 11/18/17 14:15 76 11/18/17 14:11 98.1 F 76 18 121/61 96 Temperature: Afebrile Blood Pressure: Normal Pulse: Regular Respiratory Rate: Normal Appearance: Positive for: Other (Obese and anxious) Pain Distress: None Mental Status: Positive for: Alert and Oriented X 3 - Systems Exam Head: Present: Atraumatic, Normocephalic Pupils: Present: PERRL Extroacular Muscles: Present: EOMI Conjunctiva: Present: Normal Mouth: Present: Moist Mucous Membranes Pharnyx: No: ERYTHEMA, EXUDATE, TONSILS ENLARGED Neck: Present: Normal Range of Motion Respiratory/Chest: Present: Clear to Auscultation, Good Air Exchange, Other ( patient has a loop recorder in place for 2 years). No: Respiratory Distress, Accessory Muscle Use Cardiovascular: Present: Regular Rate and Rhythm, Normal S1, S2. No: Murmurs Abdomen: Present: Normal Bowel Sounds. No: Tenderness, Distention, Peritoneal Signs, Rebound, Guarding Back: Present: Normal Inspection Upper Extremity: Present: Normal Inspection. No: Cyanosis, Edema Lower Extremity: Present: Normal Inspection. No: Edema Neurological: Present: GCS=15, CN II-XII Intact, Speech Normal, Motor Func Grossly Intact Skin: Present: Warm, Dry, Normal Color. No: Rashes Psychiatric: Present: Alert, Oriented x 3, Normal Insight, Normal Concentration Medical Decision Making ED Course and Treatment: 11/18/17 14:58 Impression: 56 year old female who presents to the emergency department complaining of chest pain, shortness of breath, dizziness, near syncope. Plan: -- EKG -- Chest X-ray -- Labs -- Reassess and disposition Prior Visits: Notes and results from previous visits were reviewed. Patient was last seen in emergency department on 01/18/17 sent by wooden tank erector for further evaluation. Patient was admitted to hospitalist care for further evaluation. Progress Notes: 11/18/17 15:15 EKG shows normal sinus rhythm rate approximately [address] or T-wave changes 11/18/17 17:36 Chest X-ray: Creator : Glenroy Yoon MD FINDINGS: LUNGS:No active pulmonary disease. PLEURA:No significant pleural effusion identified, no pneumothorax apparent. CARDIOVASCULAR:Moderate vascular congestion. OSSEOUS STRUCTURES:No significant abnormalities. VISUALIZED UPPER ABDOMEN:Normal. OTHER FINDINGS:None. IMPRESSION: Moderate vascular congestion - Lab Interpretations Lab Results: 11/18/17 15:10 11/18/17 15:10 Lab Results 11/18/17 15:10: Sodium 140, Potassium 4.2, Chloride 104, Carbon Dioxide 24, Anion Gap 16, BUN 11, Creatinine 0.7, Est GFR ( Amer) > 60, Est GFR (Non- Af Amer) > 60, Random Glucose 136 H, Calcium 9.8, Total Bilirubin 0.3, AST 31, ALT 53, Alkaline Phosphatase 71, Lactate Dehydrogenase 423, Total Creatine Kinase 78, Troponin I < 0.01, NT-Pro-B Natriuret Pep 45.0, Total Protein 7.9, Albumin 4.1, Globulin 3.8, Albumin/Globulin Ratio 1.1 11/18/17 15:10: WBC 8.0 D, RBC 5.13, Hgb 12.0, Hct 39.8, MCV 77.6 L, MCH 23.4 L , MCHC 30.2 L, RDW 18.2 H, Plt Count 219, MPV 10.8, Gran % 65.5, Lymph % (Auto) 28.2, Jennings % (Auto) 4.1, Eos % (Auto) 2.0, Baso % (Auto) 0.2, Gran # 5.25, Lymph # 2.3, Jennings # 0.3, Eos # 0.2, Baso # 0.02 I have reviewed the lab results: Yes - RAD Interpretation Radiology Orders: 11/18/17 14:49 CHEST PORTABLE [RAD] Stat - Scribe Statement The provider has reviewed the documentation as recorded by the Jason Cotton Provider Scribe Attestation: All medical record entries made by the Scribe were at my direction and personally dictated by me. I have reviewed the chart and agree that the record accurately reflects my personal performance of the history, physical exam, medical decision making, and the department course for this patient. I have also personally directed, reviewed, and agree with the discharge instructions and disposition. Disposition/Present on Arrival - Present on Arrival Any Indicators Present on Arrival: No History of DVT/PE: No History of Uncontrolled Diabetes: Yes Urinary Catheter: No History of Decub. Ulcer: No History Surgical Site Infection Following: None - Disposition Have Diagnosis and Disposition been Completed?: Yes Diagnosis: Near syncope, Chest pain Disposition: HOSPITALIZED Disposition Time: 15:55 Patient Plan: Observation, Telemetry Patient Problems: Current Active Problems Problem Status Onset Chest pain Acute Near syncope Acute Condition: GOOD
[2017-11-18 15:20] LABS: BASO # 0.02 K/mm3 (0.0-2.0); BASO % 0.2 % (0.0-3.0); EOS # 0.2 (0.0-0.7); GRAN # 5.25 (1.4-6.5); GRAN % 65.5 % (50.0-68.0); LYMPH # 2.3 (1.2-3.4); LYMPH % 28.2 % (22.0-35.0); MEAN CELL VOLUME 77.6 fl (80.0-105.0); MEAN CORPUSCULAR HEMOGLOBIN 23.4 pg (25.0-35.0); MEAN CORPUSCULAR HGB CONC 30.2 g/dl (31.0-37.0); MEAN PLATELET VOLUME 10.8 fl (7.0-11.0); MONO # 0.3 (0.1-0.6); MONO % 4.1 % (1.0-6.0); RBC 5.13 10^6/uL (3.5-6.1); RED CELL DISTRIBUTION WIDTH 18.2 % (11.5-14.5)
--- NOTE | 2017-11-18 15:29 | RAD ---
HISTORY: cp COMPARISON: 01/18/2017 FINDINGS: LUNGS: No active pulmonary disease. PLEURA: No significant pleural effusion identified, no pneumothorax apparent. CARDIOVASCULAR: Normal. OSSEOUS STRUCTURES: No significant abnormalities. VISUALIZED UPPER ABDOMEN: Normal. OTHER FINDINGS: None. IMPRESSION: No active disease.
[2017-11-18 15:34] LABS: ALB/GLOB RATIO 1.1 (1.1-1.8); ALBUMIN 4.1 g/dL (3.0-4.8); ALT/SGPT 53 U/L (7-56); AST/SGOT 31 U/L (14-36); BLOOD UREA NITROGEN 11 mg/dL (7-21); CALCIUM 9.8 mg/dL (8.4-10.5); GFR AFRICAN-AMERICAN > 60; GFR NON-AFRICAN AMERICAN > 60
[2017-11-18 15:45] LABS: TROPONIN I < 0.01 ng/mL
--- NOTE | 2017-11-18 19:30 | CARD ---
APPROVED REPORT EKG Measurement Heart [id number] VT [id number] [id number] <Conclusion> Normal sinus rhythm Minimal voltage criteria for LVH, may be normal variant Borderline ECG
[2017-11-18] MEDS ORDERED: QUEtiapine 50 mg XR Tab PO SCH (22:00)
--- NOTE | 2017-11-19 02:54 | HP ---
HISTORY OF PRESENT ILLNESS: The patient is 56-year-old known to me from previous admission, came to emergency room because of chest pain. She was complaining of feeling dizzy as if she is going to pass out. She did have some shortness of breath. She had generalized weakness and somebody told that she might be having TIA, so she got worried and came to emergency room for further evaluation. The patient does state that she usually takes aspirin and she did so today also. No history of nausea or vomiting. No history of diarrhea. No complaint of headache. PAST MEDICAL HISTORY: Significant for; 1. Morbid obesity. 2. Hypertension. 3. Hyperlipidemia. 4. Coronary artery disease. The patient had cardiac cath done by Dr. Alcon Mike in 12/2016 and was found to have nonobstructive coronaries and medical therapy was recommended. 5. Insulin dependent diabetes. 6. History of depression. ALLERGIES: SHE IS ALLERGIC TO IBUPROFEN AND MUSHROOM. MEDICATIONS: At home, she is on: 1. Plavix. 2. Zetia 10 mg daily. 3. Ranexa 500 twice a day. 4. Seroquel 50 mg at bedtime. 5. 1 tablet daily. 6. Diltiazem 120 mg daily. 7. Ambien 10 mg at bedtime. 8. Gabapentin 600 three times a day. 9. Lexapro 10 mg daily. 10. Xanax 0.5 at bedtime. 11. Singulair 10 mg daily. 12. Cozaar 100 mg daily. 13. Amaryl 4 mg twice a day. 14. Invokamet. 15. Nexium 40 mg daily. 16. Aspirin 81 daily. 17. Insulin Tresiba 60 units daily. REVIEW OF SYSTEMS: Significant for generalized weakness, chest discomfort and mild shortness of breath. PHYSICAL EXAMINATION: GENERAL: The patient is awake, alert, oriented, communicative. VITAL SIGNS: She is afebrile, pulse 74, respirations 18, blood pressure 137/66. LUNGS: Bilateral good airflow. No rhonchi or crackle. HEART: S1, S2 audible. ABDOMEN: Soft, obese, nontender. No rebound or guarding. NEUROLOGIC: The patient is awake, alert, oriented, able to communicate. EXTREMITIES: Moves all extremities. LABORATORY DATA: WBC is 8.0, hemoglobin 12, hematocrit 39, platelet of 219. Chemistry: Sodium 140, potassium 4.2, chloride 104, CO2 24, BUN 11, creatinine 0.7, blood sugar of 136. LFTs are within normal limits. Her first troponin is negative. EKG shows normal sinus rhythm. ASSESSMENT: 1. Chest pain, rule out myocardial infarction. 2. Morbid obesity. 3. Hypertension. 4. Insulin-dependent diabetes. 5. Depression. 6. Diabetic neuropathy. 7. Status post cardiac cath in 12/2016, nonobstructive coronaries. PLAN: The patient will be placed in observation. We will monitor her 3 troponins. Monitor her blood sugar. Dr. Mike is consulted. We will reevaluate in a.m. If the patient seems to be stable, possible discharge in a.m. I will order for carotid Doppler also Myrna Zurita MD
[2017-11-19] MEDS ORDERED: Pantoprazole 40 mg EC Tab PO SCH (06:30)
[2017-11-19 07:02] LABS: ALBUMIN 3.8 g/dL (3.0-4.8); ALT/SGPT 49 U/L (7-56); AST/SGOT 34 U/L (14-36); BLOOD UREA NITROGEN 10 mg/dL (7-21); CALCIUM 9.7 mg/dL (8.4-10.5); GFR AFRICAN-AMERICAN > 60; GFR NON-AFRICAN AMERICAN > 60
[2017-11-19 07:31] LABS: FREE T4 1.08 ng/dL (0.78-2.19)
[2017-11-19] MEDS: Ranolazine [Ranexa] 500 MG PO SCH ×2 (09:35→17:25)
[2017-11-19] MEDS ORDERED: diltiaZEM 120 mg/24 Hours CD Cap PO SCH (10:00)
[2017-11-19 12:58] VITALS: RESP 20; TEMP 98.4; O2SAT 95
--- NOTE | 2017-11-19 15:57 | US ---
PROCEDURE: Bilateral carotid artery duplex ultrasound HISTORY: Carotid stenosis syncope. PHYSICIAN(S): Alcon Aviles MD. TECHNIQUE: Duplex sonography and color-flow Doppler were used to evaluate the carotid bifurcations and limited segments of the vertebral arteries bilaterally. FINDINGS: There is mild focal heterogeneous echogenic plaque noted at the carotid bifurcations bilaterally. The peak systolic velocity in the proximal right internal carotid artery is 90 cm/sec. This corresponds to a 20 to 39% proximal right ICA stenosis. Normal systolic velocities are noted in the proximal right external carotid artery. There is antegrade flow in the small right vertebral artery. The peak systolic velocity in the proximal left internal carotid artery is 89 cm/sec. This corresponds to a 20 to 39% proximal left ICA stenosis. Normal systolic velocities are noted in the proximal left external carotid artery. There is antegrade flow in the left vertebral artery. IMPRESSION: 1. Bilateral 20-39% proximal ICA stenoses. 2. Antegrade flow in both vertebral arteries.
[2017-11-19 17:30] VITALS: BP 120/62; PULSE 76
--- NOTE | 2017-11-19 23:05 | CON ---
DATE: 11/19/2017 CARDIOLOGY CONSULTATION HISTORY OF PRESENT ILLNESS: The patient is a 56-year-old woman who presented with transient dizziness while she was cooking. There was no loss of consciousness. The patient's past medical history is notable for hypertension and hyperlipidemia, as well as diabetes mellitus. She is predominantly sedentary. She also suffers from a history of a depression. She complains of a damaged to her ligament in her left knee in the past. CARDIAC STUDIES: She underwent a cardiac catheterization in 12/2016 for similar symptoms of transient chest pain. She was found to have nonobstructive CAD. SOCIAL HISTORY: The patient denies smoking. REVIEW OF SYSTEMS: A 14-point review of systems is reviewed in detail. No cardiac symptomatology is noted. PHYSICAL EXAMINATION: VITAL SIGNS: Blood pressure is 141/74 with the heart rate is in the 90s. NECK: Negative JVD. LUNGS: Without rales. HEART: Reveals S1 and S2. EXTREMITIES: Without edema. LABORATORY DATA: Troponins are negative x2. Glucose is 158 and hemoglobin is 12. DIAGNOSTIC DATA: EKG is unremarkable. IMPRESSION 1. Atypical chest pain. 2. No evidence for acute coronary syndrome. 3. Diabetes mellitus. 4. Hypertension. 5. Hypercholesterolemia. 6. Sedentary. PLAN: Given these findings, the patient's cardiac status is stable. There is no evidence for acute coronary syndrome. We will arrange for an outpatient stress test. Alcon Mike MD
--- NOTE | 2017-11-20 02:48 | DS ---
HISTORY OF PRESENT ILLNESS: The patient is a 56-year-old seen and examined, sitting in chair, and seems to be comfortable. No chest pain. No nausea or vomiting. No diarrhea. The patient states she passed out yesterday and does not know the reason. Denies having low blood sugar. She states she had an appointment with physician specialist, but doctor was not available, so she came back. Denies having any headache, but did have brief episode of chest pain. When I examined the patient today, she feels fine and wants to go home. PHYSICAL EXAMINATION: VITAL SIGNS: She is afebrile, pulse is 82, respirations are 20, and blood pressure is 120/62. LUNGS: Bilateral fair airflow. No rhonchi or crackles. HEART: S1 and S2 audible. ABDOMEN: Soft, obese, and nontender. No rebound. No guarding. NEUROLOGIC: She is awake, alert, oriented, and communicative. LABORATORY DATA: Sodium 140, potassium 3.8, chloride 104, CO2 of 26, BUN 10, creatinine of 0.7, blood sugar of 158, and hemoglobin A1c is 7.8. ASSESSMENT: 1. Near syncope. 2. Known cardiac chest pain. 3. Hypertension. 4. History of cardiac catheterization in December and was unremarkable. 5. Insulin-dependent diabetes. 6. Morbid obesity. PLAN: Carotid Doppler is unremarkable. The patient is feeling well. She is hemodynamically stable. She will be discharged home today, was seen by Dr. Mike, and we will arrange for stress test as an outpatient in December. Myrna Zurita MD
== END 2017-11-19 19:07 | disposition home or self-care (01) ==
LOC: ED 14:02 → ERH 15:53 → 3RSO 11-19 00:42
PROVIDERS: ADMIT Internal Medicine; ATTEND Internal Medicine
DX: R07.89 Other chest pain (principal); I10 Essential (primary) hypertension; E11.40 Type 2 diabetes mellitus with diabetic neuropathy, unspecified; E66.01 Morbid (severe) obesity due to excess calories; E78.00 Pure hypercholesterolemia, unspecified; E78.5 Hyperlipidemia, unspecified; I25.10 Atherosclerotic heart disease of native coronary artery without angina pectoris; I25.2 Old myocardial infarction; J45.909 Unspecified asthma, uncomplicated; K21.9 Gastro-esophageal reflux disease without esophagitis; K76.0 Fatty (change of) liver, not elsewhere classified; Z79.02 Long term (current) use of antithrombotics/antiplatelets; E03.9 Hypothyroidism, unspecified; Z79.4 Long term (current) use of insulin; Z79.82 Long term (current) use of aspirin; Z79.899 Other long term (current) drug therapy; Z85.41 Personal history of malignant neoplasm of cervix uteri; Z86.73 Personal history of transient ischemic attack (TIA), and cerebral infarction without residual deficits; Z90.710 Acquired absence of both cervix and uterus; Z88.6 Allergy status to analgesic agent; Z91.018 Allergy to other foods; F32.89 Other specified depressive episodes
CPT/HCPCS: 71045; 80053; 82550; 82948; 83036; 83615; 83880; 84439; 84443; 84484; 85025; 93005; 93880; 99285; G0378

== ENCOUNTER 2019-02-12 12:51 | Outpatient (CLI) | payer BC | END 2019-02-12 12:52 | disposition home or self-care (01) | LOC: RAD 12:51 ==